=== PATIENT | female | born 1985 | race Caucasian/White ===

== ENCOUNTER → 2016-08-10 | Outpatient (CLI) | payer OTHER | LOC: MRI 07-18 09:00 | DX: G43.909 Migraine, unspecified, not intractable, without status migrainosus (principal) | CPT/HCPCS: 70544 ==

== ENCOUNTER → 2021-03-15 | Outpatient (CLI) | payer OTHER ==
[~2021-03-15] MED LIST: CITRATE OF MAG296 ML PO; KEFLEX CAP 500500 MG PO
== END ==
LOC: EXRD 15:39
DX: Z91.81 History of falling (principal)
CPT/HCPCS: 73590

== ENCOUNTER 2021-09-16 07:41 | Emergency (ER) | payer OTHER ==
[2021-09-16 08:17] LABS: RED BLOOD COUNT 5.23 M/UL (4.00-5.10); WHITE BLOOD COUNT 9.8 K/UL (4.5-11.0)
[2021-09-16 08:56] LABS: BUN/CREATININE RATIO 23 (0-10)
== END 2021-09-16 09:41 | disposition home or self-care (01) ==
LOC: ER1 07:41
PROVIDERS: Nurse Practitioner
DX: G47.00 Insomnia, unspecified (principal); R00.0 Tachycardia, unspecified; T43.595A Adverse effect of other antipsychotics and neuroleptics, initial encounter
CPT/HCPCS: 71045; 80053; 80307; 81001; 82550; 82553; 84484; 84703; 85025; 99285; J2060

== ENCOUNTER → 2021-09-16 | Outpatient (CLI) | payer OTHER | LOC: LAB 10:22 | DX: Z13.220 Encounter for screening for lipoid disorders (principal); E55.9 Vitamin D deficiency, unspecified; R53.83 Other fatigue | CPT/HCPCS: 36415; 80061; 82607; 82746; 93005 ==